=== PATIENT | male | born 1955 | race Caucasian/White ===

== ENCOUNTER 2018-12-26 06:51 | Day surgery (SDC) | payer OTHER ==
[~2018-12-26] VITALS: Ht 177.8 cm; Wt 83.0 kg
[~2018-12-26 06:51] MED LIST: HYDROCODON-ACE1 EA10 PO; NUVIGIL250 MG PO; TOPAMAX50 MG PO
[2018-12-26 07:37] LABS: HEMATOCRIT 37.3 % (42.0-54.0); MCH 29.9 pg (26.0-34.0); MCHC 34.9 g/dL (31.0-37.0); MCV 85.7 fL (80.0-100.0); MEAN PLATELET VOLUME 11.1 fL (7.4-10.4); RBC 4.35 10x6/uL (4.20-6.10); RDW 13.7 % (11.5-14.5); WBC 9.1 10x3/uL (4.8-10.8)
[2018-12-26 07:43] LABS: ANION GAP 12.6 mmol/L (8-16); CALCIUM 8.4 mg/dL (8.5-10.1); CREATININE - SERUM 1.2 mg/dL (0.6-1.3); POTASSIUM - SERUM 3.6 mmol/L (3.5-5.1)
[2018-12-26] MEDS ORDERED: TENORMIN50 MG PO (07:52)
[2018-12-26] MEDS ORDERED: ASPIRIN325 MG PO (07:52)
[2018-12-26] MEDS ORDERED: TUMS X-STR300 MG PO (07:53)
[2018-12-26] MEDS ORDERED: CHLORTHALIDONE25 MG PO (07:54)
[2018-12-26] MEDS ORDERED: COLACE100 MG PO (07:54)
[2018-12-26] MEDS ORDERED: NEURONTIN 400400 MG PO (07:54)
[2018-12-26] MEDS ORDERED: GLUCOTROL 5 MG T5 MG PO (07:55)
[2018-12-26] MEDS ORDERED: LISINOPRIL10 MG PO (07:55)
[2018-12-26] MEDS ORDERED: NAPROSYN500 MG PO (07:56)
[2018-12-26] MEDS ORDERED: GLUCOPHAGE500 MG PO (07:56)
[2018-12-26] MEDS ORDERED: FLOMAX0.4 MG PO (07:57)
[2018-12-26] MEDS ORDERED: PAMELOR75 MG PO (07:57)
[2018-12-26 08:00] VITALS: BP 94/64; Ht 177.8 cm; Wt 83.0 kg
--- NOTE | 2018-12-26 14:18 | NUR ---
1245 IV DC'D WITH CATH INTACT DC INSTS REVIEWED VOICED UNDERSTANDING RELEASED IN WC WITH ESCORT.
--- NOTE | 2018-12-27 15:39 | OP ---
PATIENT NAME: GUILLAUME FLORES MEDICAL RECORD: [id number] :51 LOCATION:D.OPS ADMISSION DATE: SURGEON: ARTEMIO BURNS MD DATE OF OPERATION: 12/26/2018 PREOPERATIVE DIAGNOSES: Recurrent left facial lesion lateral to the lateral canthus of the left eye. It measures 1.5 x 1.5 cm and is pedunculated. POSTOPERATIVE DIAGNOSES: Recurrent left facial lesion lateral to the lateral canthus of the left eye. It measures 1.5 x 1.5 cm and is pedunculated. PROCEDURES: Excision of left facial lesion. The excised defect was 2.5 x 1.8 cm with an intermediate closure. SURGEON: Artemio Burns MD MACHINE MOLDER: None. BLOOD LOSS: 25 cc. ANESTHESIA: General. COMPLICATIONS: None. The risks, possible complications, and alternatives to the procedure were explained to the patient. He elects to proceed. The discussion specifically included, but was not limited to, bleeding requiring emergency reoperation, infection, recurrence of lesion, wound dehiscence. OPERATIVE COURSE: The patient was conveyed to the operating room electively on 12/26/2018. General anesthesia was induced by the anesthesia staff. The left face was sterilely prepped and draped. Through the use of double curvilinear incisions, I excised the defect. It was excised in its entirety. Subcutaneous flaps were created sharply. Meticulous hemostasis was achieved with electrocautery. The deep dermis was closed with interrupted 3-0 Vicryl sutures. The skin was closed with a running intracuticular 4-0 Vicryl. Benzoin and Steri-Strips were applied. The patient was then extubated and conveyed to the post-anesthesia care unit where he was in stable condition. TRANSINT:[id number] Voice Confirmation ID: [id number] DOCUMENT ID: [id number] ARTEMIO BURNS MD at 1539 CC: [id number] DICTATION DATE: 12/26/18 1121 IDENTIFICATION AND RECORDS COMMANDER: 12/26/18 1329 [facility] 12/26/18 [place] [id number]
== END 2018-12-26 12:50 ==
LOC: D.OPS 06:51
PROVIDERS: Anesthesiology; ATTEND Surgery
DX: L98.8 Other specified disorders of the skin and subcutaneous tissue (principal)